=== PATIENT | male | born 1985 | race American Indian/Alaskan Native ===

== ENCOUNTER 2021-05-11 06:28 | Emergency (ER) | payer OTHER ==
--- NOTE | 2021-05-11 12:00 | Cat Scan Report ---
CT CHEST WITH CONTRAST HISTORY: trauma COMPARISON: None TECHNIQUE: Routine chest CT exam performed following intravenous contrast administration.. All CT sc ans at this location are performed using CT dose reduction for ALARA by means of automated exposure c ontrol. FINDINGS: CT CHEST: Lungs: No significant abnormality. Trachea and Bronchi: No significant abnormality. Heart and Pericardium: No significant abnormality. Vasculature: No significant abnormality. Lymphatics: No lymphadenopathy. Osseous Structures: There is a moderately displaced fracture in the mid body of the sternum with post erior displacement of the proximal fracture fragment. No additional fracture is identified. Additional Findings: Gallstone seen in the upper abdomen. IMPRESSION: 1. Moderately displaced fracture in the sternal body. 2. No additional acute traumatic findings. 3. Cholelithiasis. Signer Name: Niranjan Galloway MD Signed: 05/11/2021 11:56 AM Workstation Name: [id number]
[2021-05-11] MEDS ORDERED: ONDANSETRON 4 MG/2 ML INJ IV ONE ×2 (12:10→12:22)
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
[2021-05-11] MEDS ORDERED: MORPHINE 4 MG/1 ML INJ IV ONE (12:22)
[2021-05-11] MEDS ORDERED: SODIUM CHLORIDE 0.9% 500 ML 500 ML IV ONE (12:22)
[2021-05-11 12:47] LABS: Hematocrit 27.2 % (35.5-45.6); Hemoglobin 8.8 gm/dl (11.8-15.2); Mean Corpuscular HGB Conc 32 % (32-34)
[2021-05-11 12:48] LABS: Alanine Aminotransferase 17 units/L (7-56); Albumin 4.5 g/dL (3.9-5); Blood Urea Nitrogen 6 mg/dL (9-20); Calcium 8.8 mg/dL (8.4-10.2); Hemolysis Index 12; Mean Corpuscular Volume 70 fl (84-94); Platelet Count 182 K/mm3 (140-440); Red Cell Distribution Width 28.3 % (13.2-15.2)
[2021-05-11 12:51] LABS: BUN/Creatinine Ratio 15
--- NOTE | 2021-05-11 13:58 | Cat Scan Report ---
CT CERVICAL SPINE WITHOUT CONTRAST INDICATION: trauma. TECHNIQUE: Axial CT images of the spine were obtained. Sagittal and coronal reformatted images were produced. Al l CT scans at this location are performed using CT dose reduction for ALARA by means of automated exp osure control. COMPARISON: None available. FINDINGS: ACUTE FRACTURE(S) OR SUBLUXATION: None. SPINAL DEGENERATIVE CHANGES: No significant degenerative changes. PARASPINAL SOFT TISSUES: No soft tissue swelling or other acute abnormalities. ADDITIONAL FINDINGS: No significant additional findings. IMPRESSION: 1. No acute fracture or subluxation in the spine in neutral position. Signer Name: Nirajnan Galloway MD Signed: 05/11/2021 1:54 PM Workstation Name: [id number]
--- NOTE | 2021-05-11 14:02 | Cat Scan Report ---
CT abdomen pelvis w con INDICATION: trauma. OMNI 300 100CC.. TECHNIQUE: All CT scans at this location are performed using CT dose reduction for ALARA by means of automated e xposure control. COMPARISON: None available. FINDINGS: The included lung bases are clear. There is a gallstone in the gallbladder. The liver, kidneys, pancreas, and adrenal glands demonstrate no acute findings. There are some small splenules in the left upper quadrant without acute abnormali ty. There is a heterogeneous mass in the midline lower abdomen measuring about 7.2 x 7.8 cm in greatest d imension. There is some adjacent hypervascularity. There are no acute bowel abnormalities. There is n o free air. The visualized bones and the abdomen and pelvis show no acute fracture or other acute abnormality. Th ere is grade 1 anterolisthesis at L5-S1 due to chronic bilateral L5 pars defects. IMPRESSION: 1. No acute posttraumatic abnormality. 2. Heterogeneous hypervascular mass in the midline lower abdomen and pelvis of uncertain etiology. Fu rther evaluation with MRI without and with contrast is recommended. Signer Name: Niranjan Galloway MD Signed: 05/11/2021 1:58 PM Workstation Name: [id number]
[2021-05-11 14:08] LABS: Total Cells Counted 100
[2021-05-11 14:09] LABS: Sickle Cells 3+; Target Cells 3+
[2021-05-11 14:12] LABS: Giant Platelets Few; Platelet Estimate Consistent w Auto; Tear Drop Cells Few
--- NOTE | 2021-05-11 14:43 | Event Note ---
Face to Face: For this encounter I have reviewed the PA/COURT REGISTRY OFFICER documentation, treatment plan, medical decision making, and I had face to face time with this patient. I evaluated patient. Patient has normal vital signs. He is ambulatory without orthostasis. I was concerned about intra-abdominal hematoma with the finding of CT scan. Patient does not have any abdominal tenderness or ecchymoses. He does not have any abdominal pain. He only has isolated chest pain. He does have sternal fracture. CT cervical spine without acute traumatic injury. Patient h as notable anemia. History of sickle cell disease.. If repeat vital signs are stable he is appropriate for discharge home.
[2021-05-11 15:39] VITALS: BP 116/65
== END 2021-05-11 15:38 | disposition home or self-care (01) ==
LOC: ED 06:28
DX: S22.20XA Unspecified fracture of sternum, initial encounter for closed fracture (principal); R19.00 Intra-abdominal and pelvic swelling, mass and lump, unspecified site; V89.2XXA Person injured in unspecified motor-vehicle accident, traffic, initial encounter; Y93.89 Activity, other specified; Y92.89 Other specified places as the place of occurrence of the external cause; Y99.8 Other external cause status
CPT/HCPCS: 36415; 71260; 72125; 74177; 80053; 84484; 85007; 85025; 96361; 96374; 96375; 96376; 99284; J2270; J2405; J7040; Q9967